=== PATIENT | female | born 1975 | race Hispanic/Latino ===

== ENCOUNTER 2016-10-23 22:25 | Inpatient (IN) | payer OTHER ==
[2016-10-23 22:25] VITALS: BMI 26.2
[2016-10-23 23:20] LABS: BASO # 0.1 K/uL (0.0-0.2); BASO % 0.8 % (0.0-2.0); EOS # 0.3 K/uL (0.0-0.7); EOS % 2.7 % (0.0-4.0); HEMATOCRIT 37.9 % (34.0-47.0); LYMPH # 2.6 K/uL (1.0-4.3); LYMPH % 27.5 % (20.0-40.0); MEAN CELL VOLUME 83.9 fl (81.0-99.0); MEAN CORPUSCULAR HEMOGLOBIN 26.8 pg (27.0-31.0); MEAN CORPUSCULAR HGB CONC 31.9 g/dL (33.0-37.0); MEAN PLATELET VOLUME 8.4 fl (7.2-11.7); MONO # 0.8 K/uL (0.0-0.8); MONO % 8.3 % (0.0-10.0); NEUT # 5.8 K/uL (1.8-7.0); NEUT % 60.7 % (50.0-75.0); RED CELL DISTRIBUTION WIDTH 15.5 % (11.5-14.5); WHITE BLOOD COUNT 9.6 K/uL (4.8-10.8)
--- NOTE | 2016-10-23 23:29 | ED PDOC ---
HPI: Psych/Substance Abuse Time Seen by Provider: 10/23/16 22:53 Chief Complaint (Nursing): Psychiatric Evaluation Chief Complaint (Provider): I took some pills History Per: Patient History/Exam Limitations: no limitations Onset/Duration Of Symptoms: Gradual Current Symptoms Are (Timing): Still Present Suicide/Self Injury Attempted (Context): Ingestion (naprosyn) Associated Symptoms: Anxiety, Depression, Suicidal Thoughts, Suicidal Plan Involuntary Hold By: Emergency Physician Additional History Per: Patient Additional Complaint(s): 41yo female c/o depression and ingestion of approximate half bottle (estimated 15-20pills) of naproxen 500mg. She states she has been depressed for quite some time and today impulsively overdosed although has thought about it in the past. Denies drug or alcohol use. Denies prior psychiatric admissions or suicide attempts. Past Medical History Reviewed: Historical Data, Nursing Documentation, Vital Signs Vital Signs: Last Vital Signs Temp 98.7 F 10/23/16 22:31 Pulse 77 10/23/16 23:14 Resp 20 10/23/16 22:31 BP 147/78 10/23/16 22:31 Pulse Ox 99 10/23/16 22:31 - Medical History PMH: Migraine Denies: Chronic Kidney Disease Other PMH: coronary artery dissection- [facility] no treatment or intervention resolved - Surgical History Surgical History: No Surg Hx - Family History Family History: States: Unknown Family Hx - Living Arrangements Living Arrangements: With Family - Social History Current smoker - smoking cessation education provided: No Alcohol: None Drugs: Denies - Home Medications Home Medications: Ambulatory Orders Medication Instructions Recorded Metoclopramide [Reglan] 10 mg PO Q8 PRN #15 tab 03/03/16 Naproxen [Naprosyn] 500 mg PO BID PRN #30 tab 03/03/16 - Allergies Allergies/Adverse Reactions: Allergies Allergy/AdvReac Type Severity Reaction Status Date / Time nut - unspecified Allergy RASH Verified 03/03/16 13:57 vancomycin Allergy RASH Verified 03/03/16 13:57 Review of Systems Constitutional: Negative for: Fever, Chills Cardiovascular: Negative for: Chest Pain, Palpitations Respiratory: Negative for: Cough, Shortness of Breath Gastrointestinal: Negative for: Nausea, Vomiting Genitourinary Female: Negative for: Dysuria Musculoskeletal: Negative for: Neck Pain, Shoulder Pain Skin: Negative for: Rash, Lesions, Jaundice Neurological: Negative for: Weakness, Numbness Psych: Positive for: Anxiety, Depression, Suicidal ideation. Negative for: Withdrawal Physical Exam - Reviewed Nursing Documentation Reviewed: Yes Vital Signs Reviewed: Yes - Physical Exam Appears: Positive for: Well, Non-toxic, No Acute Distress Head Exam: Positive for: ATRAUMATIC, NORMAL INSPECTION, NORMOCEPHALIC Skin: Positive for: Normal Color, Warm, DRY Eye Exam: Positive for: EOMI, Normal appearance, PERRL ENT: Positive for: Normal ENT Inspection Neck: Positive for: Normal, Painless ROM Cardiovascular/Chest: Positive for: Regular Rate, Rhythm Respiratory: Positive for: CNT, Normal Breath Sounds Gastrointestinal/Abdominal: Positive for: Normal Exam, Bowel Sounds, Soft Back: Positive for: Normal Inspection Extremity: Positive for: Normal ROM Neurologic/Psych: Positive for: Alert, Oriented, Mood/Affect (flat affect poor judgement fair insight). Negative for: Aphasia - Laboratory Results Result Diagrams: 10/23/16 23:13 10/23/16 23:13 - ECG ECG: Positive for: Interpreted By Me ECG Rhythm: Positive for: Normal QRS, Normal ST Segment, Sinus Rhythm Interpretation Of ECG: QRS 98 Rate: 77 O2 Sat by Pulse Oximetry: 99 Pulse Ox Interpretation: Normal Medical Decision Making Medical Decision Making: Workup for overdose initiated, IVF, labs/ ASA/APAP levels. DEBRA Yin d/w poison control rec supportive care. Disposition - Clinical Impression Clinical Impression: Intentional naproxen overdose - Patient ED Disposition Is Patient to be Admitted: Transfer of Care Counseled Patient/Family Regarding: Studies Performed, Diagnosis - Disposition Disposition: Transfer of Care Disposition Time: 23:55 Condition: STABLE Patient Signed Over To: Brayden Goodrich Handoff Comments: pending re-eval and med clr for crisis
[2016-10-23 23:30] LABS: ALB/GLOB RATIO 1.3 (1.0-2.1); ALKALINE PHOSPHATASE 61 U/L (38-126); ALT/SGPT 20 U/L (9-52); AST/SGOT 25 U/L (14-36); BILIRUBIN,TOTAL 0.3 mg/dl (0.2-1.3); BLOOD UREA NITROGEN 16 mg/dl (7-17); CALCIUM 9.3 mg/dL (8.4-10.2); CARBON DIOXIDE 26 mmol/L (22-30); CHLORIDE 102 mmol/L (98-107); GFR AFRICAN-AMERICAN > 60; GLUCOSE,RANDOM 108 mg/dL (65-105); POTASSIUM 3.8 MMOL/L (3.6-5.0); SODIUM 140 mmol/l (132-148); TOTAL PROTEIN 8.1 G/DL (6.3-8.2)
[2016-10-23] MEDS ORDERED: Sodium Chloride 0.9% 1,000 ML IV STA (23:32)
--- NOTE | 2016-10-24 00:43 | ED PDOC ---
- Laboratory Results Result Diagrams: 10/23/16 23:13 10/23/16 23:13 - ECG O2 Sat by Pulse Oximetry: 99 Medical Decision Making Medical Decision Making: Patient s/o from Dr. Su at 0000 pending re-eval and medical clearance for crisis. 3AM: Pt. is medically cleared. Awaiting decision from crisis. Will place in Ed OBS. 0425: Patient will be admitted to psych under Dr. Arzate. Dx is depression. Scribe Attestation: Documented by Cassandra Owens acting as a scribe for Brayden Goodrich MD. Provider Scribe Attestation: All medical record entries made by the Scribe were at my direction and personally dictated by me. I have reviewed the chart and agree that the record accurately reflects my personal performance of the history, physical exam, medical decision making, and the department course for this patient. I have also personally directed, reviewed, and agree with the discharge instructions and disposition. Disposition - Clinical Impression Clinical Impression: Depression - POA Present On Arrival: None - Disposition Disposition: Admitted as In-Patient Disposition Time: 04:25 Condition: STABLE ED OBSERVATION Date of observation admission: 10/24/16 Time of observation admission: 03:06 - Observation admission statement Patient is being placed in observation because:: suicidal - Goals of Observation Goals of observation are:: pending crisis eval
[2016-10-24 05:31] VITALS: O2SAT 98
[2016-10-24] MEDS ORDERED: DiphenhydrAMINE 50 mg/ml Inj IM PRN (05:56)
[2016-10-24] MEDS ORDERED: Alum-Mag Hydrox-Simethicone Susp (30 mL) PO PRN (05:56)
[2016-10-24] MEDS ORDERED: Magnesium Hydroxide Susp 30 ml UD PO PRN (05:56)
[2016-10-24 07:44] LABS: T4 13.3 ug/dl (5.5-11.0)
[2016-10-24 07:58] LABS: THYROID STIMULATING HORMONE 1.26 mIU/ML (0.46-4.68)
--- NOTE | 2016-10-24 08:27 | PCM.PSYCH ---
Initial Psychiatric Evaluation - Initial Psychiatric Evaluation Type of Admission: Voluntary Legal Status: Capacity Chief Complaint (in patient's own words): "I took an overdose" Patient's Reaction to Hospitalization: HPI: 41 y/o female who was brought into ED by EMS secondary to overdosing on Naproxen. Pt stated she and her live in boyfriend of 6 1/2 years were arguing and she got tired and wanted it to end, so she took approximately 15 Naproxen pills. Pt stated the pills belong to her boyfriend. Pt stated her boyfriend called 911 and she was brought to the ED. +Depressed mood. +poor concentration/memory/ability to focus. +decreased appetite. Patients admits that the overdose was a suicide attempt. She currently denies active suicidal ideation/plan/intent and is able to contract for safety. Pt denied having a psychiatric hx and denied being on meds. However, pt stated she was in therapy 2 months ago but did not like the therapist. Pt stated she never looked for another therapist again. Pt stated that this past Friday after another argument with her boyfriend, she started to feel suicidal and was thinking of taking pills. Pt stated she has never attempted suicide before. Pt denied current SI/HI, as well as, a/v hallucinations. However, stated that this overdose was an attempt to kill herself. Pt stated she and her boyfriend argue a lot and she feels he has borderline personality disorder. She stated her boyfriend always blames her for everything and they could be having a great day and one thing could trigger him and ruin the day. Pt stated she knows she is in a toxic, unhealthy relationship, but loves her boyfriend. Pt denied alcohol/ drug use. Pt stated she cannot sleep well when they are fighting and reported her appetite decreased recently and she lost weight. Collateral from repack room worker: Pt's boyfriend, Joel [phone], who stated he and pt were arguing over relationship issues and he stated he did not feel the issues were serious. He stated a couple days ago pt stated she wanted to hurt herself but did not specify a plan. He reported pt does not do drugs/alcohol. He stated pt does not have a psych hx and does not take meds. He stated pt overdosing could be a scream for help and some attention seeking. He stated this is very shocking to him and that pt is the most stable in his life who always helps others out. He stated he does not feel pt is a harm to herself and stated she does not need to be admitted. He stated pt is safe to come home if discharged. PPHx: Pt denied having any psych admissions, however, stated she had some outpatient therapy. MHx: No acute medical issues All: Nuts, Vancomycin SHx: Denies drugs/etoh/cig. Lives in an apt with her BF and 3 kids. Employed as a home health care social worker. FHx: Believes her brother may have undiagnosed depression. Current Medications: Active Medications Generic Name Dose Route Start Last Admin Trade Name Freq PRN Reason Stop Dose Admin Acetaminophen 650 mg 10/24/16 05:56 Tylenol 325mg Tab PO Q4 PRN pain 4-7 Al Hydrox/Mg Hydrox/Simethicone 30 ml 10/24/16 05:56 Maalox Plus 30 Ml PO Q4 PRN Dyspepsia Diphenhydramine HCl 50 mg 10/24/16 05:56 Benadryl IM Q6 PRN Extrapyramidal S/S Unable PO Diphenhydramine HCl 50 mg 10/24/16 05:56 Benadryl PO Q6 PRN Extrapyramidal Symptoms Diphenhydramine HCl 50 mg 10/24/16 05:56 Benadryl PO HS PRN Sleep Haloperidol 5 mg 10/24/16 05:56 Haldol PO Q4 PRN Agitation Haloperidol Lactate 5 mg 10/24/16 05:56 Haldol IM Q4 PRN Agitation, Unable to Take PO Lorazepam 2 mg 10/24/16 05:56 Ativan IM Q4 PRN Anxiety/Agitation,Unable PO Lorazepam 2 mg 10/24/16 05:56 Ativan PO Q4 PRN Anxiety/Agitation Magnesium Hydroxide 30 ml 10/24/16 05:56 Milk Of Magnesia PO HS PRN Constipation Past Psychiatric History - Past Psychiatric History Previous Treatment History: None Pertinent Medical Hx (Current Medical&Sleep Prob, Allergies): Allergies Allergy/AdvReac Type Severity Reaction Status Date / Time nut - unspecified Allergy RASH Verified 03/03/16 13:57 vancomycin Allergy RASH Verified 03/03/16 13:57 No Known Home Med 10/24/16 Review of Systems - Review of Systems All systems: reviewed and no additional remarkable complaints except - Psychiatric Psychiatric: As Per HPI, Anhedonia, Change in Appetite, Depression, Difficulty Concentrating, Hopelessness, Memory Loss, Mood Swings, Suicidal Ideation Mental Status Examination - Personal Presentation Personal Presentation: Looks stated age - Affect Affect: Constricted, Depressed (Tearful) - Motor Activity Motor Activity: Calm - Reliability in Providing Information Reliability in Providing Information: Good - Speech Speech: Organized, Coherent - Mood Mood: Depressed - Formal Thought Process Formal Thought Process: No Impairment - Obsessions/Compulsions Obsessions: No Compulsions: No - Cognitive Functions Orientation: Person, Place, Situation, Time Sensorium: Alert Estimate of Intelligence: Average Judgement: Intact, as evidence by: Good judgement, Intact, as evidence by: Insight regarding need for hospitalization Memory: Recent intact, as evidence by: Ability to recall events of the day, Remote intact, as evidenced by: Abilit to recall sig. life events, Remote intact , as evidenced by: Ability to recall historical events - Risk Risk: Suicidal - Strength & Assets Inventory Strength & Assets Inventory: Family support, Cooperative DSM 5 DX - DSM 5 DSM 5 Diagnosis: Major Depressive Disorder - Recommended/Plan of Treatment Treatment Recommendations and Plan of Treatment: -Admit to psychiatry unit -Start Zoloft 50 mg PO Daily, r/b/se reviewed, patient given a handout with information -Individual and group therapy -Disposition planning -Medicine consult Projected ELOS: 5-7 days Discharge Plan and Discharge Criteria: Discharge when psychiatrically stable and not an acute danger to self - Smoking Cessation Smoking Cessation Initiated: No Reason for not providing: Not indicated
--- NOTE | 2016-10-24 14:51 | CP.PCM.CON ---
History of Present Illness - History of Present Illness History of Present Illness: 41 yo female with history of CAD admitted to psyche unit because of suicidal attempt by overdosing with Naproxen. Review of Systems - Review of Systems All systems: reviewed and no additional remarkable complaints except (aside from those mentioned above, 12 point system review were negative by me) Past Patient History - Tetanus Immunizations Tetanus Immunization: Unknown - Past Medical History & Family History Past Medical History?: No Past Family History: Reviewed and not pertinent - Past Social History Smoking Status: Never Smoked Chewing Tobacco Use: No Cigar Use: No Alcohol: None Drugs: Denies Home Situation {Lives}: Other (with boyfriend) - CARDIAC Hx Heart Attack: Yes (2006) Hx Hypertension: No - PULMONARY Hx Respiratory Disorders: No Hx Tuberculosis: No - NEUROLOGICAL Hx Neurological Disorder: No HX Cerebrovascular Accident: No Hx Seizures: No - HEENT Hx HEENT Problems: No - RENAL Hx Chronic Kidney Disease: No - ENDOCRINE/METABOLIC Hx Endocrine Disorders: No - HEMATOLOGICAL/ONCOLOGICAL Hx Blood Disorders: No Hx Cancer: No Hx Human Immunodeficiency Virus (HIV): No - INTEGUMENTARY Hx Dermatological Problems: No - MUSCULOSKELETAL/RHEUMATOLOGICAL Hx Musculoskeletal Disorders: No - GASTROINTESTINAL Hx Gastrointestinal Disorders: No - GENITOURINARY/GYNECOLOGICAL Hx Genitourinary Disorders: No Hx Sexually Transmitted Disorders: No - PSYCHIATRIC Hx Depression: Yes Hx Substance Use: No - SURGICAL HISTORY Hx Cardiac Catheterization: Yes (2008) - ANESTHESIA Hx Anesthesia: Yes Hx Anesthesia Reactions: No Meds Allergies/Adverse Reactions: Allergies Allergy/AdvReac Type Severity Reaction Status Date / Time nut - unspecified Allergy RASH Verified 03/03/16 13:57 vancomycin Allergy RASH Verified 03/03/16 13:57 - Medications Medications: Current Medications Acetaminophen (Tylenol 325mg Tab) 650 mg PO Q4 PRN PRN Reason: pain 4-7 Al Hydrox/Mg Hydrox/Simethicone (Maalox Plus 30 Ml) 30 ml PO Q4 PRN PRN Reason: Dyspepsia Diphenhydramine HCl (Benadryl) 50 mg IM Q6 PRN PRN Reason: Extrapyramidal S/S Unable PO Diphenhydramine HCl (Benadryl) 50 mg PO Q6 PRN PRN Reason: Extrapyramidal Symptoms Diphenhydramine HCl (Benadryl) 50 mg PO HS PRN PRN Reason: Sleep Haloperidol (Haldol) 5 mg PO Q4 PRN PRN Reason: Agitation Haloperidol Lactate (Haldol) 5 mg IM Q4 PRN PRN Reason: Agitation, Unable to Take PO Lorazepam (Ativan) 2 mg IM Q4 PRN PRN Reason: Anxiety/Agitation,Unable PO Lorazepam (Ativan) 2 mg PO Q4 PRN PRN Reason: Anxiety/Agitation Magnesium Hydroxide (Milk Of Magnesia) 30 ml PO HS PRN PRN Reason: Constipation Sertraline HCl (Zoloft) 50 mg PO DAILY [facility] Last Admin: 10/24/16 10:38 Dose: 50 mg Physical Exam - Constitutional Appears: No Acute Distress - Head Exam Head Exam: ATRAUMATIC - Eye Exam Eye Exam: Normal appearance - ENT Exam ENT Exam: Mucous Membranes Moist - Neck Exam Neck exam: Negative for: Meningismus - Respiratory Exam Respiratory Exam: absent: Rhonchi, Wheezes, Respiratory Distress - Cardiovascular Exam Cardiovascular Exam: REGULAR RHYTHM, +S1, +S2 - GI/Abdominal Exam GI & Abdominal Exam: Soft. absent: Tenderness - Rectal Exam Rectal Exam: Deferred - Extremities Exam Extremities exam: Negative for: pedal edema - Neurological Exam Neurological exam: Alert, Oriented x3 - Psychiatric Exam Psychiatric exam: Normal Affect - Skin Skin Exam: Dry, Intact Results - Vital Signs Recent Vital Signs: Last Vital Signs Temp 98.2 F 10/24/16 05:30 Pulse 77 10/24/16 05:30 Resp 18 10/24/16 06:09 BP 136/84 10/24/16 05:30 Pulse Ox 98 10/24/16 05:30 - Labs Result Diagrams: 10/23/16 23:13 10/23/16 23:13 Labs: Laboratory Results - last 24 hr 10/24/16 07:05 Thyroxine (T4) 13.3 H Total T3 1.40 L TSH 3rd Generation 1.26 Assessment & Plan (1) Suicide attempt Status: Acute (2) CAD (coronary artery disease) Status: Acute Comment: pt claimed she had a heart attack, with positive EKG and elevated Troponin in 2008 and was put on ASA daily but then DC after 2 yrs. Pt should at least have a baby ASA daily prophylactically. she refused.
[2016-10-25 10:24] LABS: CHOLESTEROL 254 mg/dL (0-199)
--- NOTE | 2016-10-25 12:41 | PCM.PYCHPN ---
Psychiatric Progress Note - Psychiatric Progress Note Patient seen today, length of contact: Patient evaluated, case discussed with team, chart reviewed Patient Chief Complaint: "I want to go home" Problems Identified/Issues Discussed: Patient reports that her mood is improved and that she thinks her recent suicide attempt was "stupid" and impulsive. She states that she was not planning to commit suicide prior to the point. Patient stated that she wants to leave the hospital tomorrow. She was informed on the 48 hour letter process and also informed that the fiction and nonfiction writer prose does not feel safe discharging her at this time due to recent impulsive suicide attempt. Medication Change: No Medical Record Reviewed: Yes Consults ordered or reviewed: Medicine Consult Mental Status Examination - Cognitive Function Orientation: Person, Place, Situation, Time Memory: Intact Attention: WNL Concentration: WNL Association: WNL Fund of Knowledge: WNL - Mood Mood: Depressed - Affect Affect: Broad - Speech Speech: Appropriate - Formal Thought Process Formal Thought Process: No Impairment Psychotic Thoughts and Behaviors: No AH/VH/paranoia - Suicidal Ideation Suicidal Ideation: No - Homicidal Ideation Homicidal Ideation: No Goal/Treatment Plan - Goal/Treatment Plan Need for Continued Stay: Remain at risks for inpatient hospitalization Progress Toward Problem(s) and Goals/Treatment Plan: 41 yo female admitted s/p suicide attempt for severe depression. -Continue Zoloft 50 mg PO Daily -Individual and group therapy -Disposition planning -Medicine consult appreciated Estimated Date of D/C: 10/28/16
--- NOTE | 2016-10-25 18:55 | CARD ---
APPROVED REPORT EKG Measurement Heart [id number] <Conclusion> Normal sinus rhythm Incomplete right bundle branch block Borderline ECG
--- NOTE | 2016-10-26 10:47 | PCM.PYCHPN ---
Psychiatric Progress Note - Psychiatric Progress Note Patient seen today, length of contact: chart reviewed, case discussed with team , 35min session Patient Chief Complaint: reported impulsive suicidal attempt by overdosing on nsaid-reports remorse, expresses children as leverage, has been seen on unit, staff report pt has been adherent, labs reviewed abnormal thyroid studies noted Problems Identified/Issues Discussed: alteration in mood alteration in coping Medical Problems: per chart abnormal thyroid studies Diagnostic Results: per psychiatry per medicine per nursing per social work Medication Change: No Medical Record Reviewed: Yes Mental Status Examination - Cognitive Function Orientation: Person, Place, Situation, Time Memory: Intact Attention: WNL Concentration: WNL Association: [facility] Fund of Knowledge: [facility] Decription of patient's judgement and insights: impaired - Mood Mood: Depressed - Affect Affect: Broad - Speech Speech: Appropriate - Formal Thought Process Formal Thought Process: No Impairment - Suicidal Ideation Suicidal Ideation: No - Homicidal Ideation Homicidal Ideation: No Goal/Treatment Plan - Goal/Treatment Plan Need for Continued Stay: Remain at risks for inpatient hospitalization Progress Toward Problem(s) and Goals/Treatment Plan: inpt milieu vital signs and observation per clinical status-pt did make serious impulsive attempt, notes review pt might be reactive i Estimated Date of D/C: 10/28/16 - Smoking Cessation Smoking Cessation Initiated: No Reason for not providing: deferred
[2016-10-27 11:01] LABS: ALB/GLOB RATIO 1.2 (1.0-2.1); ALKALINE PHOSPHATASE 47 U/L (38-126); ALT/SGPT 19 U/L (9-52); AST/SGOT 22 U/L (14-36); BILIRUBIN,TOTAL 0.5 mg/dl (0.2-1.3); BLOOD UREA NITROGEN 15 mg/dl (7-17); CALCIUM 9.3 mg/dL (8.4-10.2); CARBON DIOXIDE 29 mmol/L (22-30); CHLORIDE 99 mmol/L (98-107); GFR AFRICAN-AMERICAN > 60; GLUCOSE,RANDOM 93 mg/dL (65-105); POTASSIUM 3.9 MMOL/L (3.6-5.0); SODIUM 139 mmol/l (132-148); TOTAL PROTEIN 7.5 G/DL (6.3-8.2)
[2016-10-27 11:15] LABS: T4 11.7 ug/dl (5.5-11.0)
--- NOTE | 2016-10-27 11:28 | PN ---
DATE: 10/27/2016 ROOM: 311, psychiatry. This is a 41-year-old female with recent admission for an apparent drug overdose and suicidal attempt , and is now also being followed closely for metabolic management because of abnormal thyroid functio n studies. She remains clinically euthyroid at this time and the latest chemistries showed a BUN of 16, sodium 1 40, potassium 3.8, chloride 102, CO2 26, glucose 108 and creatinine 0.8. Her hemoglobin A1c is 5.3%. The lipids are slightly elevated with a total cholesterol 254 and an LDL of 148 and the HDL is 77 a s noted. Her thyroid studies done initially showed a T4 of 13.3 mcg/dL with a TSH of 1.26. The repe at thyroid studies today were not undertaken per patient's request. So at this time, she actually remains clinically and biochemically euthyroid with a transient T4 elev ation expected in neuropsychiatric disturbances of an acute nature, which apparently happened with th is patient and this should improve accordingly as her clinical condition improves. There is no indic ation at this time for any kind of thyroid pharmacotherapy. We will await the thyroid antibodies, wh ich will confirm and/or negate the presence of underlying thyroid autoimmunity. We will follow and a dvise accordingly. Nurys Bashir MD cc: [phone] TT: 10/27/2016 11:27:40 Confirmation # [id number] Dictation # [id number] en
--- NOTE | 2016-10-27 15:19 | PCM.PYCHPN ---
Psychiatric Progress Note - Psychiatric Progress Note Patient seen today, length of contact: chart reviewed, case discussed with team , 35min session Patient Chief Complaint: discussed with use of seroquel pt requests to remain-current dose, ? less shaking of legs reported impulsive suicidal attempt by overdosing on nsaid-reports remorse, expresses children as leverage, has been seen on unit, staff report pt has been adherent, labs reviewed abnormal thyroid studies noted Problems Identified/Issues Discussed: alteration in mood alteration in coping Medical Problems: per chart abnormal thyroid studies-seen by seating captain Diagnostic Results: per psychiatry per medicine per nursing per social work Medication Change: No Medical Record Reviewed: Yes Mental Status Examination - Cognitive Function Orientation: Person, Place, Situation, Time Memory: Intact Attention: WNL Concentration: WNL Association: WNL Fund of Knowledge: WN Decription of patient's judgement and insights: impaired - Mood Mood: Depressed - Affect Affect: Broad - Speech Speech: Appropriate - Formal Thought Process Formal Thought Process: No Impairment - Suicidal Ideation Suicidal Ideation: No - Homicidal Ideation Homicidal Ideation: No Goal/Treatment Plan - Goal/Treatment Plan Need for Continued Stay: Remain at risks for inpatient hospitalization Progress Toward Problem(s) and Goals/Treatment Plan: inpt milieu vital signs and observation per clinical status-pt did make serious impulsive attempt, notes review pt might be reactive i Estimated Date of D/C: 10/28/16 - Smoking Cessation Smoking Cessation Initiated: No Reason for not providing: deferred
--- NOTE | 2016-10-28 09:17 | PCM.PYCHPN ---
Psychiatric Progress Note - Psychiatric Progress Note Patient seen today, length of contact: chart reviewed, case discussed with team , 35min session Patient Chief Complaint: "I'm feeling better." Problems Identified/Issues Discussed: No significant events over the weekend. The patient has not expressed any suicidal ideation since admission. She denies current passive or active suicidal ideation/plan/intent. She is remorseful for her recent attempt and is future oriented, stating that she wants to live for her children and her family. She is agreeable to outpatient treatment following discharge. She has been compliant with her medications and denies adverse effects. She is requesting to be discharged home soon, so she can return to her family. Medication Change: No Medical Record Reviewed: Yes Mental Status Examination - Cognitive Function Orientation: Person, Place, Situation, Time Memory: Intact Attention: WNL Concentration: WNL Association: WNL Fund of Knowledge: [facility] Decription of patient's judgement and insights: Fair I/J - Mood Mood: Neutral - Affect Affect: Broad - Speech Speech: Appropriate - Formal Thought Process Formal Thought Process: No Impairment Psychotic Thoughts and Behaviors: NO AH/VH/paranoia/delusions - Suicidal Ideation Suicidal Ideation: No - Homicidal Ideation Homicidal Ideation: No Goal/Treatment Plan - Goal/Treatment Plan Need for Continued Stay: Remain at risks for inpatient hospitalization Progress Toward Problem(s) and Goals/Treatment Plan: 41 yo female admitted s/p suicide attempt and depression, now reports improvement in mood, no longer reports ideation to harm self. -Continue Zoloft 50 mg PO Daily -Individual and group therapy -Disposition planning -Medicine + endocrinology consults appreciated -Possible discharge tomorrow with outpatient follow-up Estimated Date of D/C: 10/29/16 - Smoking Cessation Smoking Cessation Initiated: No Reason for not providing: Not indicated
[2016-10-28 11:35] LABS: CORTISOL AM 12.8 ug/dL (4.46-22.7)
--- NOTE | 2016-10-28 11:53 | PN ---
DATE: 10/28/2016 ENDO FOLLOWUP NOTE ROOM: 311. SUBJECTIVE: This is a 41-year-old female presenting here with a recent suicidal gesture and apparent drug overdose on the background of generalized anxiety and depression, and is now [facility]. She remains clinically euthyroid and biochemically as a transient T4 or thyroxine elevation as expect ed in acute neuropsychiatric disturbances as noted. LABORATORY DATA: Her latest chemistries showed a BUN of 15, sodium 139, potassium 3.9, chloride 99, CO2 of 29, glucose 93, and creatinine 0.9. The repeat thyroid study showed a T4 of 11.7 mcg/dL and a free T4 of 1.25, and a TSH of 0.90. So at this time, there is no indication for any kind of thyroid pharmacotherapy, and should expect no rmalization of her thyroid studies as her clinical condition improves. We will follow. Nurys Bashir MD cc: [id number] TT: 10/28/2016 11:52:38 Confirmation # [id number] Dictation # [id number] lokesh
[2016-10-29 05:54] VITALS: BP 134/88; PULSE 70; RESP 19; TEMP 97.1
--- NOTE | 2016-10-29 08:43 | CON ---
DATE: 10/26/2016 ROOM: 311. SUBJECTIVE: This is a 41-year-old female admitted here with a recent suicidal gesture and attempt wi th an apparent drug overdose and is now being referred for evaluation of abnormal thyroid function [facility]. PAST MEDICAL HISTORY: Essentially unremarkable. Has a history of generalized anxiety ____, on no me dications at this time, history of coronary artery disease with a previous myocardial infarction, cur rently on cardiac medications, also a history of dyslipidemia as noted. FAMILY HISTORY: Positive for hypertension, heart disease. No known thyroid endocrinopathy. SOCIAL HISTORY: The patient has supportive family. Lives with her boyfriend and 3 children. No kno wn substance use. She is employed as a healthcare social worker. REVIEW OF SYSTEMS: As mentioned above. Admits to generalized body weakness with easy fatigability an d tiredness and suboptimal energy level. No ____ no chest pains, palpitations or PND. ____ urinary pattern. PHYSICAL EXAMINATION: GENERAL: This is an average-built female in no apparent distress with a blood pressure of 140/80, pu lse of 70 beats per minute, regular, temperature 98, respirations 20. HEENT: Head normocephalic. Eyes: ____ fundoscopy not possible at this time. HEART: S1, S2 is rapid and regular. LUNGS: Clear to auscultation. ABDOMEN: Flat, soft with positive bowel sounds. EXTREMITIES: ____. ____ chemistry showed a BUN of ____, sodium 140, potassium 3.8, chloride 102, CO2 ____ glucose 108 an d creatinine 0.8 ____ ASSESSMENT: This is a ____ she is clinically euthyroid with no overt thyromegaly or any palpable thy roid nodules noted. ____ indicative of the so-called acute ____ state with a ____ level elevated, thy roxine value is indicative of ____ disturbance which is quite ____ mechanism ____ . This is a transi ent phenomenon and should improve as her clinical condition improves. With a normal TSH, she is actua lly biochemical euthyroid with no evidence of any hypo or hyperthyroxinemia. PLAN OF MANAGEMENT: As discussed with the patient and staff, we will obtain ____ hormonal profile on ce again tomorrow ____ total T4 and free T4 and TSH ____ biochemical pattern thereof. A thyroid belem xidase antibody will be obtained ____ . There is no indication at this time ____ pharmacotherapy as this is a transient phenomenon that should improve accordingly as her clinical condition resolved. W ill follow and advise accordingly. Nurys Bashir MD cc: [id number] TT: 10/26/2016 13:34:22 Confirmation # [id number] Dictation # [id number] rn
--- NOTE | 2016-10-29 08:49 | PCM.PYCHDC ---
Mental Status Examination - Mental Status Examination Orientation: Person, Place, Situation, Time Memory: Intact Mood: Neutral Affect: Broad Speech: Appropriate Attention: WNL Concentration: WNL Association: WNL Fund of Knowledge: WNL Formal Thought Process: No Impairment Description of patient's judgement and insight: Fair I/J Psychotic Thoughts and Behaviors: NO AH/VH/paranoia/delusions Suicidal Ideation: No Current Homicidal Ideation?: No Discharge Summary - Discharge Note Reason for Hospitalization: HPI: 41 y/o female who was brought into ED by EMS secondary to overdosing on Naproxen. Pt stated she and her live in boyfriend of 6 1/2 years were arguing and she got tired and wanted it to end, so she took approximately 15 Naproxen pills. Pt stated the pills belong to her boyfriend. Pt stated her boyfriend called 911 and she was brought to the ED. +Depressed mood. +poor concentration/memory/ability to focus. +decreased appetite. Patients admits that the overdose was a suicide attempt. She currently denies active suicidal ideation/plan/intent and is able to contract for safety. Pt denied having a psychiatric hx and denied being on meds. However, pt stated she was in therapy 2 months ago but did not like the therapist. Pt stated she never looked for another therapist again. Pt stated that this past Friday after another argument with her boyfriend, she started to feel suicidal and was thinking of taking pills. Pt stated she has never attempted suicide before. Pt denied current SI/HI, as well as, a/v hallucinations. However, stated that this overdose was an attempt to kill herself. Pt stated she and her boyfriend argue a lot and she feels he has borderline personality disorder. She stated her boyfriend always blames her for everything and they could be having a great day and one thing could trigger him and ruin the day. Pt stated she knows she is in a toxic, unhealthy relationship, but loves her boyfriend. Pt denied alcohol/ drug use. Pt stated she cannot sleep well when they are fighting and reported her appetite decreased recently and she lost weight. Collateral from outside maintenance worker: Pt's boyfriend, Joel [phone], who stated he and pt were arguing over relationship issues and he stated he did not feel the issues were serious. He stated a couple days ago pt stated she wanted to hurt herself but did not specify a plan. He reported pt does not do drugs/alcohol. He stated pt does not have a psych hx and does not take meds. He stated pt overdosing could be a scream for help and some attention seeking. He stated this is very shocking to him and that pt is the most stable in his life who always helps others out. He stated he does not feel pt is a harm to herself and stated she does not need to be admitted. He stated pt is safe to come home if discharged. PPHx: Pt denied having any psych admissions, however, stated she had some outpatient therapy. MHx: No acute medical issues All: Nuts, Vancomycin SHx: Denies drugs/etoh/cig. Lives in an apt with her BF and 3 kids. Employed as a social human services assistants. FHx: Believes her brother may have undiagnosed depression. Laboratory Data: Abnormal Lab Results 10/27/16 09:30 Cortisol AM Sample 12.8 Consultations:: List each consultation separately and include: 1. Reason for request. 2. Findings. 3. Follow-up Consultations: Medicine Consult, Endocrinology Consult Summary of Hospital Course include:: 1. Description of specific treatment plan utilized for patients during their course of treatmen. 2. Summarize the time- course for resolution of acute symptoms and/or regressed behaviors. 3. Describe issues identified and worked on during hospitalization. 4. Describe medication utilized. 5. Describe medical problems identified and treated. 6. Reassessment of suicide risk Summary of Hospital Course: Patient admitted to the hospital. She participated in individual and group therapy. She was started on Zoloft 50 mg PO Daily for depression. DCP&P was called to ensure the safety of the kids, who are currently being cared for by the patient's mother. Patient does not express any ideation to harm herself or others. She is psychiatrically stable for discharge. - Final Diagnosis (DSM 5) Condition upon Discharge: STABLE DSM 5: Major Depressive Disorder Disposition: HOME/ ROUTINE Follow-up Treatment Plan: 41 yo female admitted s/p suicide attempt and depression, now reports improvement in mood, no longer reports ideation to harm self. She is psychiatrically stable for discharge. -Continue Zoloft 50 mg PO Daily -Individual and group therapy -Medicine + endocrinology consults appreciated -DCP&P called and the saw the patient over the weekend, they will continue to follow-up -Discharge today with outpatient psychiatric follow-up Discharge >35 min Prescriptions/Medication Reconciliation: Sertraline [Zoloft] 50 mg PO DAILY #30 tab - Smoking Cessation Smoking Cessation Medication prescribed: No Reason for not providing: Not indicated - Antipsychotic Medications Pt discharged on 2 or more routine antipsychotic medications: No
--- NOTE | 2016-10-29 15:08 | PN ---
DATE: 10/29/2016 ROOM: 311. SUBJECTIVE: This is a 41-year-old female with recent drug overdose using naproxen medication on the background of underlying generalized anxiety and depression and is now being followed closely for met abolic management. Her thyroid levels initially were elevated, although she has remained clinically euthyroid at this time, biochemically. Also her TSH levels have improved and the latest thyroid leve ls showed a TSH of 0.90 with a T4 which is much lower at 11.7 mcg/dL. It was initially 13.3 mcg/dL w ith a normal free T4 of 1.25. Her latest chemistry showed a BUN of 15, sodium 139, potassium 3.9, ch loride 99, CO2 of 29, glucose 93 and creatinine 0.9. ASSESSMENT: This is a 41-year-old female with recent suicidal gesture and ideations with underlying generalized anxiety and depression and is now being followed closely for metabolic management. She r emains clinically euthyroid and biochemically has the so-called acute sick euthyroid syndrome with a transient T4 or thyroxine elevation which has improved accordingly in the last few days as inpatient. Her TSH levels have remained near optimal and euthyroid with no indication at this time for any kin d of thyroid pharmacotherapy. Would expect improvement of her thyroid indices as her clinical condit ion improves accordingly. She will follow with her medical doctor for outpatient medical management. Nurys Bashir MD cc: [id number] TT: 10/29/2016 15:07:52 Confirmation # [id number] Dictation # [id number] luis e
== END 2016-10-29 12:00 | disposition home or self-care (01) | DRG 881 ==
LOC: H.ER 22:25 → H.EROBSV 10-24 03:06 → OBSVTOIN 10-24 04:24 → H.ERHOLD 10-24 05:14 → H.STEP 10-24 05:46
PROVIDERS: ADMIT Psychiatry & Neurology Psychiatry; ATTEND Psychiatry & Neurology Psychiatry
PROC: GZ51ZZZ Individual Psychotherapy, Behavioral (ICD-10-PCS; 2016-10-24)
PROC: GZHZZZZ Group Psychotherapy (ICD-10-PCS; principal; 2016-10-26)
DX: F32.9 Major depressive disorder, single episode, unspecified (principal); I10 Essential (primary) hypertension; T39.312A Poisoning by propionic acid derivatives, intentional self-harm, initial encounter; F41.1 Generalized anxiety disorder; I25.2 Old myocardial infarction; I25.10 Atherosclerotic heart disease of native coronary artery without angina pectoris; Y92.9 Unspecified place or not applicable; Z91.5 Personal history of self-harm